=== PATIENT | female | born 1980 | race Caucasian/White ===

== ENCOUNTER 2025-01-07 11:56 | Emergency (ER) | payer OTHER, SELFPAY ==
[2025-01-07 11:58] VITALS: BP 171/92; PULSE 90; RESP 18; TEMP 36.8; O2SAT 95
--- NOTE | 2025-01-07 12:00 | DI.RAD_ITS ---
Exam(s) XR HAND LT COMPLETE EXAM: XR HAND LT COMPLETE CLINICAL HISTORY: fall/pain/swelling. TECHNIQUE: 2D digital imaging was performed. COMPARISON: No exams were available for comparison FINDINGS: 3 views There is a mildly angulated and impacted fracture in the proximal aspect of the proximal phalanx of t he 5th finger. Fracture does not appear to extend into the adjacent 5th metacarpophalangeal joint. No other fractures identified but there is dislocation of the proximal interphalangeal joint of the a djacent 4th-ring finger. IMPRESSION: Mildly angulated and impacted fracture in the proximal aspect of the proximal phalanx of the 5th fing er. Dislocation of the proximal interphalangeal joint of the 4th-ring finger DATA REPOSITORY: RADIATION DOSE DELIVERED:
--- NOTE | 2025-01-07 13:07 | ED.GENADUL_ITS ---
Discharge Plan Disposition Patient Disposition: Home Condition: Good Discharge Details Clinical Impression: Dislocated finger, Finger fracture, left Primary Care Provider: Leo Cannon ED Provider: Essence Moseley Discharge Instructions Instructions: Finger Fracture ED, Splint Care ED Additional Instructions: You suffered a fracture to your left pinky finger as well as dislocation to the left ring finger. There were dislocation has been reduced and there is no evidence of fracture. [facility] does not believe that your fracture needs surgery at this time, I do encourage close follow-up with them and you have an appointment with them in 1 week on January 14 at 1:45 PM, number listed below if you need to change time. Please keep splint on until reevaluated orthopedics. Please encourage rest, ice, elevation. Tylenol and ibuprofen as needed for discomfort. If you develop any new or worsening symptoms to seek care urgently once again. Please try to avoid any heavy lifting activities with this hand, elevation will help significantly with the swelling. Referrals: Anson Monroe MD [ [facility] STAFF PHYSICIAN] - Discharge Data Discharge Date/Time-TO BE ENTERED AT DEPARTURE: 01/07/25 16:17 HPI General Date/Time Provider Initiated Documentation: 01/07/25 13:03 . Limitations to Documentation: no limitations . Information obtained by: patient, family (friende) and RN notes reviewed . H istory of Present Illness 44 year old F presents to the emergency department with the chief complaint of left hand pain after FOOSH, described as severe, Quality is described as stabbing, and is localized to the left and upper extremity. Patient reports no radiation. Patient started experiencing this minute(s) and it has been constant. Immobilization improves symptom(s), Movement worsens symptoms . Patient notes no other symptoms.. Patient did receive the following treatments prior to arrival, none Related Data Allergies Allergy/AdvReac Type Severity Reaction Status Date / Time No Known Allergies Allergy Unverified 01/07/25 12:00 General Stated Complaint: Orthopedic CINTIA: 4 Review of Systems Constitutional Constitutional: Reports as per HPI, Denies fever(s) and Denies headache(s) ENT Ears, Nose, Mouth, and Throat: Denies headache(s) Cardiovascular Cardiovascular: Reports as per HPI Respiratory Respiratory: Reports as per HPI and Denies cough Musculoskeletal Musculoskeletal: Reports as per HPI Integumentary/Breasts Skin/Breast: Reports as per HPI, Denies rash and Denies wounds Neurologic Neurologic: Reports as per HPI and Denies headache(s) Exam Const General: cooperative, healthy appearing, uncomfortable, no acute distress, well developed and well groomed Nutritional Appearance: well nourished and overweight Orientation: alert and awake Resp Effort & Inspection: normal respiratory effort, able to speak in complete sentences and no respiratory distress Cardio Rate: regular rate Rhythm: regular rhythm Skin General skin exam: ecchymosis (fourth and fifth digit left hand) Neuro General: patient alert and patient awake Cognition: normal cognition Speech: speech normal Gait: normal gait Motor: muscle tone normal throughout Extrem Hand/finger images: 2 1. area of swelling and pain. Some pain continues to the middle digit. She has palpable deformity at the PIP joint of the left ring finger, no other palpable deformities although noteably swollen at the fifth digit as well as discomfort, particularly proximally. Full ROM of wrist althoug she does endorse discomfort at the ulnar side. No pain over the anatomical snuff box. No pain with axially thumb loading. Sesnation is intact, capillary refill is intact. Course Vital Signs Vital signs: Vital Signs Temperature 36.8 C 01/07/25 11:58 Pulse 90 01/07/25 11:58 Respiratory Rate 18 01/07/25 11:58 Blood Pressure 171/92 H 01/07/25 11:58 Pulse Oximetry 95 01/07/25 11:58 Temperature 36.8 C 01/07/25 11:58 Temperature Source Oral 01/07/25 11:58 Pulse 90 01/07/25 11:58 Respiratory Rate 18 01/07/25 11:58 Blood Pressure 171/92 H 01/07/25 11:58 Pulse Oximetry 95 01/07/25 11:58 Oxygen Delivery Method Room Air 01/07/25 11:58 Oxygen Flow Rate 0 01/07/25 11:58 Procedure Joint Reduction Joint #1: Date of Procedure: 01/07/25 Time of procedure: 13:35 Provider that performed the procedure: Essence Moseley Patient Consented: Verbally Local Anesthetic: Lidocaine 1% Amount of anesthetic used(mL): 6 Side: left Joint reduction location: finger Technique Used: traction/counter-traction and direct manipulation Post-Reduction Neuro Exam: other (anesthetic on board) Post-Reduction Vascular Exam: intact Post Reduction X-Ray Obtained: Yes Medical Decision Making Patient is a pleasant 44-year-old RHD female, accompanied by friend, presented today after FOOSH while at work. Fell directly onto her left hand immediately noted deformity to the left index finger. States she immediately pulled on the finger to help reduce, did get some improvement but continues to have severe pain primarily in the pinky, ring and middle finger of the left hand as well as some discomfort in the left wrist. She is very uncomfortable, particularly with any movement. Denies other injury at the time of the fall, did not strike her head, no LOC or neck injury. On exam, patient appears non-toxic but very uncomfortable. She has no evdience of trauma at her head, no pain in the elbow or shoulder. Sensation is intact. She has 2+ distal pulses, intact capillary refilll. She did have 2 braclets on but these were able to be removed. She has no pain over bernabe radial side of the wrist or at the anatomical snuffbox. No deformity at the wrist. Pain primarily at the fourth and fifth digit, left hand. Limited ROM at the left ring finger with defect palpable at the PIP joint, circumfrential swelling fourth and fifth digit. XR reviewed by radiologist: IMPRESSION: Mildly angulated and impacted fracture in the proximal aspect of the proximal phalanx of the 5th finger. Dislocation of the proximal interphalangeal joint of the 4th-ring finger Discussed with patient. Patient and I discussed risks/benefits as well as expected procedural steps associated with digital block and manual reduction of the left ring finger. She voiced understanding and wishes to proceed. Please review the procedure note. Patient tolerated this well, ROM immediately improved. Will obtain post-reduction films. XR reviewed by radiologist: IMPRESSION: Satisfactory reduction of the previously noted 4th PIP joint dislocation. Nondisplaced fracture fragment at the volar base. Stable alignment of fracture at the base of the 5th proximal phalanx. Question of additional fracture fragment at the volar base of the 5th middle phalanx of the 5th finger. Images were reviewed by ortho, Jose Forrester, who advised outpatient f/u. Unlikely to need surgery but requests ulnar gutter splint. Discussed with patient. Ulnar gutter splint applied. Patient tolerated this well. Encouraged RICE and supportive care. Referral to ortho, she will call to schedule appointment. Return precautions discussed. All of her questions and concerns were addressed, she is in agreement with this plan. Quality:SDOH Health Related Social Needs: 2 No Data to Display PFSH All Active Problems (Updated 01/07/25 @ 14:54 by ABDIAS Salinas) Finger fracture, left (Acute) Dislocated finger (Acute) Social History Smoking/Tobacco Use Status: Current every day Smoking risk assessment performed?: Yes Alcohol Intake: never Substance use type: does not use
[2025-01-07] MEDS: oxyCODONE 5 MG TAB PO (13:17)
[2025-01-07] MEDS: Ibuprofen 600 MG TAB PO (13:18)
[2025-01-07] MEDS: Acetaminophen 500 MG TAB 1000 MG PO (13:18)
--- NOTE | 2025-01-07 14:20 | DI.RAD_ITS ---
Exam(s) XR WRIST LT COMP NAVICULAR XR HAND LT COMPLETE EXAM: XR HAND LT COMPLETE CLINICAL HISTORY: s/p reduction. TECHNIQUE: 2D digital imaging was performed. Three views. COMPARISON: CR XR WRIST LT COMP NAVICULAR from 01/07/2025 CR XR HAND LT COMPLETE from 01/07/2025 FINDINGS: BONES: Stable alignment of the fracture at the base of the 5th metacarpal. No bony destructive lesio n is seen. No fractures seen involving the carpal bones. JOINTS: There has been interval reduction of previously noted ventral dislocation at the 4th PIP join t. There is a nondisplaced fracture at the volar base. There is also a question of a fracture fragm ent at the volar base of the middle phalanx of the 5th finger. No acute abnormality in the wrist. SOFT TISSUE: Normal. IMPRESSION: Satisfactory reduction of the previously noted 4th PIP joint dislocation. Nondisplaced fracture frag ment at the volar base. Stable alignment of fracture at the base of the 5th proximal phalanx. Question of additional fractur e fragment at the volar base of the 5th middle phalanx of the 5th finger. DATA REPOSITORY: RADIATION DOSE DELIVERED:
--- NOTE | 2025-01-07 14:29 | NUR.NOTE ---
Appt w/[facility] SundayJanuary 14 @ 1:45pm Nursing Note:
== END 2025-01-07 16:17 | disposition home or self-care (01) ==
PROVIDERS: Emergency Provider Physician Assistant; PCP Orthopaedic Surgery Sports Medicine
DX: S62.615A Displaced fracture of proximal phalanx of left ring finger, initial encounter for closed fracture (principal); S63.285A Dislocation of proximal interphalangeal joint of left ring finger, initial encounter; W19.XXXA Unspecified fall, initial encounter
CPT/HCPCS: 99283 ×2; 26775; 73110; 73130

== ENCOUNTER 2025-01-14 14:33 | Outpatient (CLI) | payer OTHER, SELFPAY ==
--- NOTE | 2025-01-14 13:30 | DI.RAD_ITS ---
Exam(s) XR HAND LT LIMITED EXAM: XR HAND LT LIMITED CLINICAL HISTORY: f/u injury. TECHNIQUE: 2D digital imaging was performed. COMPARISON: CR XR HAND LT COMPLETE from 01/07/2025 CR XR HAND LT COMPLETE from 01/07/2025 FINDINGS: Five views. No evidence of new acute fractures or dislocation. The previously described fracture at the base of the proximal phalanx of the 5th finger is again noted. It is again noted to be impacted and with jesse lobito angulation of the distal fragment. There is prominent soft tissue swelling on the dorsal aspect of the hand, slightly more so than previous. There is also an avulsion fracture of the volar base of the middle phalanx of the 5th finger which The previously dislocated PIP joint of the 4th-ring finger remains realigned. IMPRESSION: There is an avulsion fracture of the volar base of the middle phalanx of the 5th finger noted which i s moderately displaced volar proximally. There is again noted a impacted and dorsally angulated fracture of the base of the proximal phalanx o f the 5th finger. Fourth finger PIP joint remains realigned and with a small fracture fragment at the volar base of the middle phalanx at this level again noted. DATA REPOSITORY: RADIATION DOSE DELIVERED:
== END 2025-01-14 14:34 | disposition home or self-care (01) ==
LOC: DIORS 14:34
PROVIDERS: PCP Orthopaedic Surgery Sports Medicine; Visit Provider Student in an Organized Health Care Education/Training Program
DX: S62.609A Fracture of unspecified phalanx of unspecified finger, initial encounter for closed fracture (principal); S63.259A Unspecified dislocation of unspecified finger, initial encounter; S63.289A Dislocation of proximal interphalangeal joint of unspecified finger, initial encounter; S62.607A Fracture of unspecified phalanx of left little finger, initial encounter for closed fracture
CPT/HCPCS: 73120